=== PATIENT | female | born 1950 | race Caucasian/White ===

== ENCOUNTER → 2016-08-19 | Outpatient (CLI) | payer OTHER, MEDICAID | LOC: BHFA 11:15 | PROVIDERS: ATTEND Internal Medicine Cardiovascular Disease | DX: I47.1 Supraventricular tachycardia (principal); I10 Essential (primary) hypertension ==

== ENCOUNTER → 2016-09-04 | Outpatient (CLI) | payer OTHER, MEDICAID | LOC: BMCIMAGING 14:03 | PROVIDERS: ATTEND Internal Medicine | DX: M41.84 Other forms of scoliosis, thoracic region (principal); J98.11 Atelectasis; R91.1 Solitary pulmonary nodule ==

== ENCOUNTER → 2016-09-12 | Outpatient (CLI) | payer OTHER, MEDICAID | LOC: FIMAGING 11:06 | PROVIDERS: ATTEND Internal Medicine | DX: J98.11 Atelectasis (principal); D18.03 Hemangioma of intra-abdominal structures; K44.9 Diaphragmatic hernia without obstruction or gangrene ==

== ENCOUNTER → 2017-01-02 | Outpatient (CLI) | payer OTHER, MEDICAID | LOC: FIMAGING 14:07 | PROVIDERS: ATTEND Internal Medicine | DX: Z13.820 Encounter for screening for osteoporosis (principal); M85.80 Other specified disorders of bone density and structure, unspecified site; M81.0 Age-related osteoporosis without current pathological fracture; Z78.0 Asymptomatic menopausal state ==

== ENCOUNTER → 2017-02-24 | Outpatient (CLI) | payer OTHER, MEDICAID | LOC: BMCIMAGING 08:52 | PROVIDERS: ATTEND Internal Medicine | DX: Z12.31 Encounter for screening mammogram for malignant neoplasm of breast (principal); Z80.3 Family history of malignant neoplasm of breast; R92.8 Other abnormal and inconclusive findings on diagnostic imaging of breast | CPT/HCPCS: G0202 ==

== ENCOUNTER → 2017-03-05 | Outpatient (CLI) | payer OTHER, MEDICAID | LOC: FIMAGING 09:59 | PROVIDERS: ATTEND Internal Medicine | DX: Z12.39 Encounter for other screening for malignant neoplasm of breast (principal); R92.8 Other abnormal and inconclusive findings on diagnostic imaging of breast | CPT/HCPCS: G0204 ==

== ENCOUNTER → 2017-08-26 | Outpatient (CLI) | payer OTHER, MEDICAID | LOC: FIMAGING 09:24 | PROVIDERS: ATTEND Internal Medicine | DX: K44.9 Diaphragmatic hernia without obstruction or gangrene (principal); K21.9 Gastro-esophageal reflux disease without esophagitis ==

== ENCOUNTER → 2017-11-28 | Outpatient (CLI) | payer OTHER, MEDICAID | LOC: BHFA 09:15 | PROVIDERS: ATTEND Physician Assistant Medical | DX: I47.1 Supraventricular tachycardia (principal); R07.9 Chest pain, unspecified; I10 Essential (primary) hypertension ==

== ENCOUNTER → 2018-05-19 | Outpatient (CLI) | payer OTHER, MEDICAID | LOC: BMCIMAGING 13:17 | PROVIDERS: ATTEND Family Medicine | DX: M79.672 Pain in left foot (principal) ==

== ENCOUNTER 2018-06-08 20:51 | Inpatient (IN) | payer OTHER, MEDICAID ==
--- NOTE | 2018-06-08 21:19 | EDPHY ---
H & P Stated Complaint: constipation, abd cramping x2 days - Personal History Current Tetanus/Diphtheria Vaccine: Yes - Medical/Surgical History Hx Asthma: No Hx Chronic Respiratory Disease: No Hx Diabetes: No Hx Cardiac Disease: Yes Hx Renal Disease: No Hx Cirrhosis: No Hx Alcoholism: No Hx HIV/AIDS: No Hx Splenectomy or Spleen Trauma: No Other PMH: HERNIA REPAIR WITH GASTRIC STENOSIS REPAIR, appendectomy, tonsillectomy, SBO sx, HTN - Social History Smoking Status: Never smoked Time Seen by Provider: 06/08/18 21:02 HPI/ROS: CHIEF COMPLAINT: "I am constipated" HISTORY OF PRESENT ILLNESS: 68-year-old female history of pyloric stenosis with abdominal surgery, complaining of 2 days of constipation. She is passing gas. Positive vomiting today. No appetite currently. REVIEW OF SYSTEMS: 10 systems reviewed and negative with the exception of the elements mentioned in the history of present illness PAST MEDICAL & SURGICAL HISTORY: Pyloric stenosis with subsequent surgery. SOCIAL HISTORY:No alcohol use. Works at a retail store. PHYSICAL EXAM (Prior to examination, patient consented to physical exam, hands were washed and my usual and customary physical exam procedures followed) 1) GENERAL: Well-developed, well-nourished, alert and oriented. Appears to be in no acute distress. 2) HEAD: Normocephalic, atraumatic 3) HEENT: Pupils equal, round, reactive to light bilaterally. Sclera anicteric. 4) NECK: Full range of motion, no meningeal signs. 5) LUNGS: Clear auscultation bilaterally, no wheezes, no rhonchi, no retractions. 6) HEART: Regular rate and rhythm, no murmur, no heave, no gallop. 7) ABDOMEN: No guarding, no rebound, tender to palpation periumbilical region, no distension 8) MUSCULOSKELETAL: Moving all extremities, no focal areas of tenderness, no obvious trauma. No peripheral edema or discoloration. 9) BACK: No CVA tenderness, no midline vertebral tenderness, no fluctuance, no step-off, no obvious trauma, no visual or palpable abnormality. 10) SKIN: No rash, no petechiae. [11) RECTAL ( with female light technician Teresa a bedside): Normal rectal tone, no stool in the rectal vault. DIFFERENTIAL DIAGNOSIS: In no particular including but not limited to constipation, bowel obstruction, hernia, diverticulitis, acute appendicitis (Roxy Sierra) Constitutional: Initial Vital Signs Temperature (C) 36.3 C 06/08/18 20:53 Heart Rate 135 H 06/08/18 20:53 Respiratory Rate 18 06/08/18 20:53 Blood Pressure 134/107 H 06/08/18 20:53 O2 Sat (%) 96 06/08/18 20:53 O2 Delivery Mode Room Air Allergies/Adverse Reactions: codeine [Codeine] Allergy (Mild, Verified 06/09/18 09:23) n/v Penicillins Allergy (Mild, Verified 06/08/18 20:59) n/v Home Medications: Medication Instructions Recorded Carvedilol [Carvedilol] 3.125 mg PO BID 06/09/18 Ondansetron HCl [Zofran] 4 mg PO Q4-6PRN PRN 06/09/18 Medical Decision Making ED Course/Re-evaluation: CT scan abdomen pelvis with IV contrast obtained shows severe constipation as well as acute diverticulitis sigmoid rectal: Plan for this patient IV Cipro and IV Flagyl. Admit to the hospitalist service for diverticulitis. Updated patient about acute diverticulitis Hospitalist service consult Dr. Dove. Agrees to admit. (Chase Funk) 9:17 p.m.: Patient's rectal vault is empty. We discussed possible etiologies including, but not limited to, constipation, bowel obstruction. She has had abdominal surgeries in the past and does note vomiting earlier today. Will obtain upright x-ray of the abdomen. 10:30 p.m.: Re-evaluation. Soapsuds enema has been administered. Patient requesting a CT scan of her abdomen at this time. 11:30 p.m.: Care turned over to Dr. Chase Funk at this time up, CT imaging pending (Roxy Sierra) - Data Points Laboratory Results: Laboratory Results 06/08/18 22:50 06/08/18 22:50 Medications Given: Dextrose/Sodium Chloride (D5w 1/2 Ns) 1,000 mls @ 100 mls/hr IV CONT DOMINICK Stop: 12/06/18 00:14 Last Admin: 06/09/18 02:16 Dose: 1,000 mls Ceftriaxone Sodium/Dextrose (Rocephin 1 Gm (Premix)) 50 mls @ 100 mls/hr IV DAILY [facility] PRN Reason: Protocol Stop: 07/09/18 08:59 Last Admin: 06/09/18 09:27 Dose: 50 mls Metronidazole/Sodium Chloride (Flagyl 500 Mg (Premix)) 100 mls @ 100 mls/hr IV Q8H DOMINICK PRN Reason: Protocol Stop: 07/09/18 08:59 Last Admin: 06/09/18 07:39 Dose: 100 mls Ketorolac Tromethamine (Toradol) 15 mg IVP Q6HRS PRN PRN Reason: Moderate Pain Stop: 06/14/18 05:59 Last Admin: 06/09/18 07:48 Dose: 15 mg Ondansetron HCl (Zofran) 4 mg IVP Q4HRS PRN PRN Reason: Nausea/Vomiting, Can't Take PO Stop: 12/06/18 00:10 Last Admin: 06/09/18 00:56 Dose: 4 mg Polyethylene Glycol (Miralax) 17 gm PO BID DOMINICK PRN Reason: Protocol Stop: 12/06/18 00:30 Last Admin: 06/09/18 15:34 Dose: 17 gm Promethazine HCl (Phenergan) 6.25 mg IVP Q6HRS PRN PRN Reason: Nausea/Vomiting, Can't Take PO Stop: 12/06/18 01:41 Last Admin: 06/09/18 07:49 Dose: 6.25 mg Senna/Docusate Sodium (Senokot-S) 1 - 2 tab PO BID DOMINICK PRN Reason: Protocol Stop: 12/06/18 08:59 Last Admin: 06/09/18 15:35 Dose: 2 tab Discontinued Medications Hydromorphone HCl (Dilaudid) 0.5 mg IVP EDNOW ONE Stop: 06/08/18 23:56 Last Admin: 06/08/18 23:59 Dose: 0.5 mg Sodium Chloride (Ns) 1,000 mls @ 0 mls/hr IV ONCE ONE PRN Reason: Wide Open Stop: 06/08/18 22:37 Last Admin: 06/08/18 22:52 Dose: 1,000 mls Ciprofloxacin/Dextrose (Cipro 400 Mg (Premix)) 200 mls @ 200 mls/hr IV EDNOW ONE PRN Reason: Protocol Stop: 06/09/18 00:41 Last Admin: 06/08/18 23:47 Dose: 200 mls Metronidazole/Sodium Chloride (Flagyl 500 Mg (Premix)) 100 mls @ 100 mls/hr IV EDNOW ONE PRN Reason: Protocol Stop: 06/09/18 00:41 Last Admin: 06/09/18 01:08 Dose: 100 mls Point of Care Test Results: Chemistry 06/08/18 22:54 POC Sodium 140 mEq/L mEq/L (135-145) POC Potassium 3.7 mEq/L mEq/L (3.3-5.0) POC Chloride 107 mEq/L mEq/L (97-110) POC BUN 16 mg/dL mg/dL (7-23) POC Creatinine 0.7 mg/dL mg/dL (0.6-1.0) POC Glucose 93 mg/dL mg/dL (70-100) ISTAT H&H 06/08/18 22:54 POC Hgb 11.6 gm/dL L gm/dL (12.6-16.3) POC Hct 34 % L % (38-47) Departure - [facility] Clinical Impression: Diverticulitis Condition: Good
[2018-06-08] MEDS ORDERED: NS 1,000 ML IV ONE (22:36)
[2018-06-08] MEDS ORDERED: IOPAMIDOL (ISOVUE-300) 100 ML BTL ONE (22:42)
[2018-06-08 22:58] LABS: PLATELET COUNT 447 10^3/uL (150-400)
[2018-06-08] MEDS ORDERED: CIPROFLOXACIN 400 MG/DEXTROSE 200 ML IV ONE (23:42)
[2018-06-08] MEDS ORDERED: HYDROmorphONE/DILAUDID 2 MG/ML INJ IVP ONE (23:55)
[2018-06-09] MEDS ORDERED: ACETAMINOPHEN 325 MG TAB PO PRN (00:11)
[2018-06-09] MEDS ORDERED: ONDANSETRON DISINTEGRATING 4 MG TAB PO PRN (00:11)
[2018-06-09] MEDS ORDERED: HYDROmorphONE/DILAUDID 1 MG/ML INJ IVP PRN (00:11)
[2018-06-09] MEDS ORDERED: D5W 1/2 NS 1,000 ML IV SCH (00:15)
[2018-06-09] MEDS ORDERED: LACTULOSE 20 GM/30 ML UDCUP PO PRN (00:31)
[2018-06-09] MEDS ORDERED: BISACODYL 10 MG SUPP PR PRN (00:31)
[2018-06-09] MEDS ORDERED: POLYETHYLENE GLYCOL 3350 17 GM PKT PO PRN (00:31)
--- NOTE | 2018-06-09 00:34 | PDGENHP ---
History and Physical - Chief Complaint Abdominal pain - History of Present Illness 68 yo F w/ hx of SVT presents with abdominal pain. She thinks she has been constipated for 3-4 weeks. Over the last 2 days, however, she developed progressively severe LLQ pain. Today this progressed to 10/10 so she came in to the ED. In the ED CT scan was notable for acute, uncomplicated diverticulitis. She also remains complicated. Her pain is well controlled with Dilaudid. She is being admitted for IV antibiotics. She denies infectious symptoms; no objective evidence of SIRS at this time. Case discussed with ED physician Dr. Tai; records reviewed and summarized above History Information - Allergies/Home Medication List Allergies/Adverse Reactions: codeine [Codeine] Allergy (Mild, Verified 06/08/18 20:59) n/v Penicillins Allergy (Mild, Verified 06/08/18 20:59) n/v Home Medications: Carvedilol 06/08/18 [Last Taken Unknown] I have personally reviewed and updated: family history, medical history - Past Medical History SVT - Surgical History Reports: hernia repair Additional surgical history: Stomach surgery for gastric outlet obstruction - Family History Additional family history: Diverticulitis - Social History Smoking Status: Never smoked Review of Systems Review of Systems: ROS: 10pt was reviewed & negative except for what was stated in HPI & below Physical Exam Physical Exam: Temp Pulse Resp BP Pulse Ox 36.3 C 94 16 144/95 H 96 06/08/18 20:53 06/08/18 23:51 06/08/18 23:51 06/08/18 23:51 06/09/18 00:13 O2 (L/minute) 2 Constitutional: no apparent distress, not in pain Eyes: PERRL, EOMI Ears, Nose, Mouth, Throat: moist mucous membranes, no oral mucosal ulcers Cardiovascular: regular rate and rhythym, no murmur, rub, or gallop Respiratory: no respiratory distress, clear to auscultation Gastrointestinal: normoactive bowel sounds, tenderness (LLQ), No guarding, No rebound, No distension Skin: warm, normal color Musculoskeletal: full muscle strength Neurologic: AAOx3, CN II-XII Intact Psychiatric: interacting appropriately, not anxious Lab Data & Imaging Review 06/08/18 22:50 06/08/18 22:50 WBC 9.44 10^3/uL (3.80-9.50) 06/08/18 22:50 RBC 4.27 10^6/uL (4.18-5.33) 06/08/18 22:50 Hgb 9.7 g/dL (12.6-16.3) L 06/08/18 22:50 POC Hgb 11.6 gm/dL (12.6-16.3) L 06/08/18 22:54 Hct 33.0 % (38.0-47.0) L 06/08/18 22:50 POC Hct 34 % (38-47) L 06/08/18 22:54 MCV 77.3 fL (81.5-99.8) L 06/08/18 22:50 MCH 22.7 pg (27.9-34.1) L 06/08/18 22:50 MCHC 29.4 g/dL (32.4-36.7) L 06/08/18 22:50 RDW 17.4 % (11.5-15.2) H 06/08/18 22:50 Plt Count 447 10^3/uL (150-400) H 06/08/18 22:50 MPV 10.2 fL (8.7-11.7) 06/08/18 22:50 Neut % (Auto) 65.5 % (39.3-74.2) 06/08/18 22:50 Lymph % (Auto) 23.0 % (15.0-45.0) 06/08/18 22:50 [place] % (Auto) 6.3 % (4.5-13.0) 06/08/18 22:50 Eos % (Auto) 3.7 % (0.6-7.6) 06/08/18 22:50 Baso % (Auto) 1.0 % (0.3-1.7) 06/08/18 22:50 Nucleat RBC Rel Count 0.0 % (0.0-0.2) 06/08/18 22:50 Absolute Neuts (auto) 6.19 10^3/uL (1.70-6.50) 06/08/18 22:50 Absolute Lymphs (auto) 2.17 10^3/uL (1.00-3.00) 06/08/18 22:50 Absolute Monos (auto) 0.59 10^3/uL (0.30-0.80) 06/08/18 22:50 Absolute Eos (auto) 0.35 10^3/uL (0.03-0.40) 06/08/18 22:50 Absolute Basos (auto) 0.09 10^3/uL (0.02-0.10) 06/08/18 22:50 Absolute Nucleated RBC 0.00 10^3/uL (0-0.01) 06/08/18 22:50 Immature Gran % 0.5 % (0.0-1.1) 06/08/18 22:50 Immature Gran # 0.05 10^3/uL (0.00-0.10) 06/08/18 22:50 POC Sodium 140 mEq/L (135-145) 06/08/18 22:54 Sodium 134 mEq/L (135-145) L 06/08/18 22:50 POC Potassium 3.7 mEq/L (3.3-5.0) 06/08/18 22:54 Potassium 3.9 mEq/L (3.5-5.2) 06/08/18 22:50 POC Chloride 107 mEq/L (97-110) 06/08/18 22:54 Chloride 106 mEq/L (97-110) 06/08/18 22:50 Carbon Dioxide 22 mEq/l (22-31) 06/08/18 22:50 Anion Gap 6 mEq/L (6-14) 06/08/18 22:50 POC BUN 16 mg/dL (7-23) 06/08/18 22:54 BUN 17 mg/dL (7-23) 06/08/18 22:50 Creatinine 0.8 mg/dL (0.6-1.0) 06/08/18 22:50 POC Creatinine 0.7 mg/dL (0.6-1.0) 06/08/18 22:54 Estimated GFR > 60 06/08/18 22:50 Glucose 95 mg/dL (70-100) 06/08/18 22:50 POC Glucose 93 mg/dL (70-100) 06/08/18 22:54 Calcium 9.0 mg/dL (8.5-10.4) 06/08/18 22:50 Imaging Review: Imaging Impressions Abdomen X-Ray 06/08/18 21:16 Impression: Constipation without obstruction. Abdomen CT 06/08/18 22:36 Impression: 1. Constipation with diverticulitis of the rectosigmoid colon. Focus of air near the inflammatory changes favored to represent air within a diverticulum rather than a microperforation. Trace reactive free fluid in the pelvis. Recommend colonoscopy after acute symptoms resolve if patient is not current. 2. Mild mesenteric lymphadenopathy in the left hemiabdomen, likely reactive. 3. Redemonstration of hepatic hemangioma. 4. Moderate hiatal hernia. Findings and recommendations discussed with Dr. Tai at 2343 hour, 06/08/2018. Assessment & Plan Assessment: 68 yo F presents with diverticulitis. Plan: 1. Acute diverticulitis - Uncomplicated per CT scan (personally reviewed/ interpreted). She has systemic infectious symptoms at this time. - CTX/Flagyl IV ordered - Maintain NPO for now, ADAT - mIVF overnight - Dilaudid IV PRN for pain 2. Constipation - She has been constipated for several weeks and this likely predisposed her to development of diverticulitis. - Carla regimen ordered 3. Hx SVT - On Coreg, continue pending reconciliation. 4. Microcytic anemia - Will check ferritin; she denies melena/BRBPR but she will need colonoscopy after treatment of acute issues. - Recommend outpatient GI on discharge Diet - NPO Code - Full Ppx - SCDs Dispo - Admit under observation status
[2018-06-09] MEDS: ONDANSETRON 4 MG/2 ML VIAL IVP PRN (00:56)
[2018-06-09] MEDS: KETOROLAC 15 MG/1 ML SDV IVP PRN ×3 (01:43→20:11)
[2018-06-09] MEDS: PROMETHAZINE HCL 25 MG/ML INJ IVP PRN ×2 (01:54→07:49)
[2018-06-09 05:26] LABS: PLATELET COUNT 334 10^3/uL (150-400)
--- NOTE | 2018-06-09 07:12 | CPEKG ---
Test Reason : OPEN Blood Pressure : / mmHG Vent. Rate : 078 BPM Atrial Rate : 078 BPM P-R Int : 142 ms QRS Dur : 087 ms QT Int : 399 ms P-R-T Axes : 059 067 029 degrees QTc Int : 455 ms Sinus rhythm Confirmed by Chase Funk ([id number]) on 06/09/2018 7:12:18 AM Referred By: Confirmed By:Chase Funk
[2018-06-09] MEDS: SENNOSIDES/DOCUSATE SODIUM TAB PO SCH ×3 (07:37→20:09)
[2018-06-09] MEDS ORDERED: NON-FORMULARY NEW DRUG (Ondansetron Hcl [Zofran] 4 MG) PO PRN (12:28)
--- NOTE | 2018-06-09 13:17 | HOSPPROG ---
Hospitalist Progress Note Assessment/Plan: diverticulitis benign exam bid miralax for constipation Objective: Vital Signs Temp Pulse Resp BP Pulse Ox 36.7 C 102 H 16 115/84 H 96 06/09/18 11:02 06/09/18 11:02 06/09/18 11:02 06/09/18 11:02 06/09/18 11:02 Laboratory Results 06/09/18 04:18 06/09/18 04:18 06/08/18 06/09/18 06/10/18 05:59 05:59 05:59 Output Total 250 Balance -250 ICD10 Worksheet Patient Problems: Problems Problem Status Onset Constipation Acute Diverticulitis Acute Abdominal pain Active Nausea and vomiting Active Peptic ulcer Active Pyloric stenosis Active
--- NOTE | 2018-06-09 14:39 | ASMTCMCOM ---
CM Note CM Note Notes: Pt came to hospital for constipations and abdominal cramping, pt diagnosed with diverticulitis. 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 Anticipate she will dc home independent when medically stable. CM available for any changes. DC Plan: Independent Date Signed: 06/09/2018 02:38 PM Electronically Signed By:Tonia Coates RN
[2018-06-09] MEDS: POLYETHYLENE GLYCOL 3350 17 GM PKT PO SCH ×2 (15:34→20:08)
[2018-06-09] MEDS: CARVEDILOL 3.125 MG TAB PO SCH (16:37)
[2018-06-10] MEDS: SENNOSIDES/DOCUSATE SODIUM TAB PO SCH ×2 (08:56→20:49)
[2018-06-10] MEDS: CARVEDILOL 3.125 MG TAB PO SCH ×2 (08:56→17:40)
[2018-06-10] MEDS: POLYETHYLENE GLYCOL 3350 17 GM PKT PO SCH ×2 (09:00→20:49)
[2018-06-10] MEDS: MAGNESIUM HYDROXIDE 30 ML UDCUP PO PRN (10:47)
[2018-06-10] MEDS ORDERED: BISACODYL 10 MG SUPP PR PRN (12:21)
--- NOTE | 2018-06-10 14:12 | HOSPPROG ---
Addendum entered and electronically signed by Torrie Acosta NP 06/10/18 14:13 : #Micrcytic anemia labs not clear recheck in am asymptomatic will need colonoscopy in future check iron studies. Original Note: Hospitalist Progress Note Assessment/Plan: 68y female with c/o abd pain. First encounter, chart reviewed. #Diverticulitis responding to abx less pain today tolerating regular diet #Constipation cont aggressive therapy fleets and supp ambulate #Abd pain better #Dispo unclear change to intpt status needs cont IV abx aggressive bowel care Subjective: Tearful, still no BM. Abd still distneded. Objective: Vital Signs Temp Pulse Resp BP Pulse Ox 36.6 C 79 13 118/80 93 06/10/18 08:00 06/10/18 08:56 06/10/18 08:00 06/10/18 08:56 06/10/18 08:00 Laboratory Results 06/09/18 04:18 06/09/18 04:18 06/09/18 06/10/18 06/11/18 05:59 05:59 05:59 Output Total 250 Balance -250 - Physical Exam Constitutional: appears nourished, uncomfortable, No obese Eyes: PERRL, anicteric sclera, EOMI Ears, Nose, Mouth, Throat: moist mucous membranes, hearing normal, ears appear normal Cardiovascular: regular rate and rhythym, No JVD, No edema Respiratory: no respiratory distress, no rales or rhonchi, reduced air movement Gastrointestinal: tenderness, distension, No ascites, No guarding Skin: warm, normal color, No mottled Musculoskeletal: normal joint ROM, no joint effusions, generalized weakness Neurologic: AAOx3 Psychiatric: interacting appropriately, not encephalopathic, thought process linear, anxious ICD10 Worksheet Patient Problems: Problems Problem Status Onset Nausea and vomiting Active Abdominal pain Active Pyloric stenosis Active Peptic ulcer Active Diverticulitis Acute
--- NOTE | 2018-06-10 14:53 | PDMN ---
Medical Necessity Medical necessity: Pt meets IP criteria as of 06/10/2018 per MD and MCG M-150 ( diverticulitis, acute); est los > 2 mn for ongoing tx and management of diverticulitis with constipation and abdominal pain; requiring IV ABX, pain management, and aggressive bowel care.
[2018-06-10] MEDS: KETOROLAC 15 MG/1 ML SDV IVP PRN (20:45)
[2018-06-10] MEDS ORDERED: MELATONIN 3 MG TAB PO PRN (22:18)
[2018-06-11] MEDS: KETOROLAC 15 MG/1 ML SDV IVP PRN ×2 (05:48→13:48)
[2018-06-11] MEDS: MAGNESIUM HYDROXIDE 30 ML UDCUP PO PRN (05:55)
[2018-06-11] MEDS ORDERED: SODIUM FERRIC GLUCONAT/SUCROSE 125 MG in NS 100 ML IV ONE (08:41)
[2018-06-11] MEDS: POLYETHYLENE GLYCOL 3350 17 GM PKT PO SCH ×2 (08:47→20:12)
[2018-06-11] MEDS: SENNOSIDES/DOCUSATE SODIUM TAB PO SCH ×2 (08:47→20:12)
[2018-06-11] MEDS: CARVEDILOL 3.125 MG TAB PO SCH ×2 (08:47→17:35)
[2018-06-11] MEDS: metroNIDAZOLE 500 MG TAB PO SCH ×2 (10:22→17:35)
--- NOTE | 2018-06-11 13:02 | HOSPPROG ---
Hospitalist Progress Note Assessment/Plan: 68y female with c/o abd pain. #Diverticulitis responding to abx less pain today tolerating regular diet transition to PO abx #Constipation resolved KUB ordered ambulate #Abd pain better #Iron def anemia multifactorial, give iron will need colonoscopy this month after infection resolved D/W pt agrees will fu with Dr Barroso #CAD ECHO, was scheduled outpt completed here follow read #Dispo hopefully DC in am if doing well Subjective: Feeling better. Still having some mild abd discomfort. No other issues. Objective: Vital Signs Temp Pulse Resp BP Pulse Ox 36.4 C 82 14 128/89 H 92 06/11/18 08:03 06/11/18 08:03 06/11/18 08:03 06/11/18 08:03 06/11/18 08:03 Laboratory Results 06/11/18 04:41 - Physical Exam Constitutional: no apparent distress, appears nourished Eyes: PERRL, anicteric sclera, EOMI Ears, Nose, Mouth, Throat: moist mucous membranes, hearing normal, ears appear normal Cardiovascular: regular rate and rhythym, No JVD Respiratory: no respiratory distress, reduced air movement Gastrointestinal: normoactive bowel sounds, tenderness, No ascites Skin: warm, normal color, No mottled Musculoskeletal: normal joint ROM, no joint effusions, generalized weakness Neurologic: AAOx3 Psychiatric: interacting appropriately, not anxious, not encephalopathic ICD10 Worksheet Patient Problems: Problems Problem Status Onset Diverticulitis Acute Abdominal pain Active Nausea and vomiting Active Peptic ulcer Active Pyloric stenosis Active
--- NOTE | 2018-06-11 15:24 | ECHO ---
[email or web address] [address] Main: [phone] Fax: Transthoracic Echocardiogram Name: SHARITA CAROLINA MR#: [id number] Study Date: 06/11/2018 Study Time: 10:37 AM Date of : 1950 Age: 68 year(s) Height: 165.1 cm (65 in.) Weight: 63.5 kg (140 lb.) BSA: 1.7 m2 Gender: Female Examination: Echo Indication: Chest Pain Image Quality: Good Contrast: Requested by: Torrie Buckner BP: 128 mmHg/89 mmHg Heart Rate: Rhythm: Indication: Chest Pain Procedure Staff Process Development Manager: Nichole Blakely RDCS Reading Physician: Isaiah Marinelli MD Requesting Provider: Conclusions: Normal size left ventricle. The ejection fraction is estimated to be 65-70 %. No regional wall motion abnormality. Normal diastolic LV function. Mild mitral valve regurgitation is present. Mild tricuspid regurgitation is present. No pericardial effusion. No prior study for comparison. Measurements: Chambers Valvular Assessment AV/MV Valvular Assessment TV/PV Normal Normal Normal Name Value Range Name Value Range Name Value Range Ao Randi (MM): 3.3 cm (2.2 cm-3.7 AV Vmax: 1.34 m/s (1 m/s-1.7 TR Vmax: 2.27 mm/s ( - ) cm) m/s) TR PGmax: 21 mmHg ( - ) IVSd (2D): 0.6 cm (0.6 cm-1.1 AV meanP mmHg ( - ) syst. PAP: 26 mmHg ( - ) cm) MV E Vmax: 0.64 m/s ( - ) LVDd (2D): 4.1 cm (3.9 cm-5.3 MV A Vmax: 0.83 m/s ( - ) cm) MV E/A: 0.77 ( - ) LVDs (2D): 2.7 cm (2.1 cm-4 cm) LVPWd (2D): 0.7 cm ( - ) LVEF (MOD4): 73 % (>=55 %) EF Range: 65-70 % Continued Measurements: Chambers Valvular Assessment AV/MV Valvular Assessment TV/PV Name Value Name Value Name Value Patient: SHARITA CAROLINA Study Date: 06/11/2018 Page 1 of 2 10:37 AM LADs: 3.9 cm MV E' Septal: 0.07 m/s CVP (est.): 5 mmHg LADs Lon.8 cm MV E/E' Septal: 9.00 LA Area: 17.3 cm2 MV E/E' Lateral: 7.50 LA Volume: 49 ml LA Volume Index: 28.8 ml/m2 Additional Vessels Name Value Ao Ascendin.4 cm Findings: Left Ventricle: Normal size left ventricle. No LV hypertrophy. Normal global systolic LV function. The ejection fraction is estimated to be 65-70 %. No regional wall motion abnormality. Normal diastolic LV function. Right Ventricle: Normal size right ventricle. Left Atrium: The left atrium is normal in size. Right Atrium: The right atrium is normal in size. Mitral Valve: The mitral valve is normal in appearance. Mild mitral valve regurgitation is present. Aortic Valve: The aortic valve is normal in appearance and function. The aortic valve is tri-leaflet. Tricuspid Valve: The tricuspid valve is normal in appearance and function. Mild tricuspid regurgitation is present. The pulmonary artery pressure is normal. Pulmonic Valve: The pulmonic valve is normal in appearance and function. Aorta: The aorta is normal. Pericardium: No pericardial effusion. (No Signature Object) Patient: SHARITA CAROLINA Study Date: 06/11/2018 Page 2 of 2 10:37 AM [id number]
[2018-06-11] MEDS: ONDANSETRON 4 MG/2 ML VIAL IVP PRN (21:38)
[2018-06-12] MEDS: metroNIDAZOLE 500 MG TAB PO SCH ×2 (02:15→10:32)
[2018-06-12 07:38] VITALS: BP 121/87
[2018-06-12] MEDS: CARVEDILOL 3.125 MG TAB PO SCH (09:03)
[2018-06-12] MEDS: SENNOSIDES/DOCUSATE SODIUM TAB PO SCH (09:07)
--- NOTE | 2018-06-12 10:05 | HOSPPROG ---
Hospitalist Progress Note Assessment/Plan: 68y female with c/o abd pain. First encounter, chart reviewed. #Diverticulitis -Flagyl + Levaquin -will need colonoscopy after this resolves #abdominal pain due to this -better #Constipation -resolved #Abd pain better #Iron def anemia -f/u with GI -reviewed this with her about the importance of f/u with Dr Barroso #CAD -echo done which shows normal LV function, ef of 65-760% -she has a f/u appt w Rafia Villa #plan: dc home w close f/u Subjective: Crystal is feeling much better today, has no complaints. Objective: Vital Signs Temp Pulse Resp BP Pulse Ox 36.3 C 123 H 16 121/87 H 95 06/12/18 07:36 06/12/18 07:36 06/12/18 07:36 06/12/18 07:36 06/12/18 07:36 Laboratory Results 06/11/18 04:41 06/11/18 06/12/18 06/13/18 05:59 05:59 05:59 Intake Total 500 Balance 500 - Physical Exam Constitutional: no apparent distress, appears nourished, not in pain Eyes: PERRL Ears, Nose, Mouth, Throat: hearing normal Cardiovascular: regular rate and rhythym, no murmur, rub, or gallop Respiratory: no respiratory distress Gastrointestinal: normoactive bowel sounds Skin: warm Musculoskeletal: full muscle strength Neurologic: AAOx3 Psychiatric: interacting appropriately ICD10 Worksheet Patient Problems: Problems Problem Status Onset Diverticulitis Acute Abdominal pain Active Nausea and vomiting Active Peptic ulcer Active Pyloric stenosis Active
[2018-06-12] MEDS: POLYETHYLENE GLYCOL 3350 17 GM PKT PO SCH (10:50)
--- NOTE | 2018-06-12 11:21 | GDS ---
DISCHARGE DIAGNOSES: 1. Acute diverticulitis. 2. Abdominal pain due to this. 3. Constipation. 4. Iron deficiency anemia. 5. History of coronary artery disease. HISTORY: Briefly, the patient is a very nice 68-year-old woman with a history of SVT, who presented to the emergency room with abdominal pain. She had been constipated for 3-4 weeks, but then developed progressively severe left lower quadrant pain. In the ED, she had a CT scan that was notable for acute uncomplicated diverticulitis. She was treated with IV antibiotics. Today, she is feeling markedly better. She will be discharged home and follow up with Dr. Shields and get a colonoscopy. HOSPITAL COURSE: 1. Acute diverticulitis. Pain is almost completely resolved. Tolerating a regular diet. 2. Abdominal pain, resolved. 3. Constipation, resolved. 4. Iron deficiency anemia. Her hemoglobin/hematocrit are lower than her baseline. I have recommended that she get close followup with GI, [facility], and she is aware of this. 5. Coronary artery disease. She has a followup appointment with HUMBERTO Aguilar. I reviewed her echo results, which showed normal LV function with EF of 65-70 percent. DISCHARGE CONDITION: Stable. Blood pressure is 138/83, heart rate of 83, respiratory rate of 16, O2 sats on room air 95%, temperature is 36.7 Celsius. MEDICATIONS AT DISCHARGE: Please see the EMR. DISCHARGE INSTRUCTIONS: 1. Avoid Zofran while on the Levaquin, it can affect the QT interval. 2. Follow up with Dr. Barroso within the next month. She needs a colonoscopy and further evaluation of her iron deficiency anemia. 3. Recommend she get a repeat CBC in the next 2 weeks because her hemoglobin and hematocrit are lower than her baseline. 4. No alcohol while on Flagyl. 5. Be aware that Levaquin can affect her tendons. No activity while on this medication. If she has tendon pain to follow up with her primary care provider. /[id number]/MODL MTDD
== END 2018-06-12 12:41 | disposition home or self-care (01) | DRG 392 ==
LOC: F3E 06-09 01:22 → OBSVTOIN 06-10 14:15
PROVIDERS: ADMIT Student in an Organized Health Care Education/Training Program; ATTEND Internal Medicine
DX: K57.32 Diverticulitis of large intestine without perforation or abscess without bleeding (principal); K59.00 Constipation, unspecified; D50.9 Iron deficiency anemia, unspecified; I25.10 Atherosclerotic heart disease of native coronary artery without angina pectoris; I10 Essential (primary) hypertension
CPT/HCPCS: 82435-PO; 82565-PO; 82947-PO; 84132-PO; 84295-PO; 84520-PO; 85014-PO; 96365; G0378; J0696; J0744; J1170; J1885; J2405; J2550; J2916; Q9967

== ENCOUNTER → 2018-06-25 | Outpatient (CLI) | payer OTHER, MEDICAID ==
[~2018-06-25] MED LIST: IOPAMIDOL (ISOVUE 370) 100 ML BTL IV ONE
== END ==
LOC: FIMAGING 10:50
PROVIDERS: ATTEND Internal Medicine
DX: R10.9 Unspecified abdominal pain (principal); D18.03 Hemangioma of intra-abdominal structures; K44.9 Diaphragmatic hernia without obstruction or gangrene
CPT/HCPCS: 74177; Q9967

== ENCOUNTER → 2018-10-08 | Outpatient (CLI) | payer OTHER, MEDICAID | LOC: BMCIMAGING 16:53 | PROVIDERS: ATTEND Internal Medicine | DX: R05 Cough (principal) ==